=== PATIENT | male | born 1955 | race Caucasian/White ===

== ENCOUNTER 2021-08-10 15:24 | Observation (INO) | payer OTHER ==
--- OUTSIDE RECORDS SUMMARY | 2021-08-10 15:28 | XMS REPORT | Continuity of Care Document ---
:1955 Author Organization [facility] t Address [address] [place] [address] Care Team Providers Name Role Phone Braydon JARRETT, [facility] Primary Care Physician PREZAS Attending Clinician Unavailable LAB90 Attending Clinician Unavailable Prezas DO Attending Clinician SREE Attending Clinician Unavailable Payers Payer Name Policy Type Policy Number Effective Date Expiration Date S antoni AEM[place]aq[place] 5 [id number] 2021 00:00:00 Problems Condition Condition Condition Status Onset Resolution Last Treating Co mments Source Name Details Category Date Date Treatment Clinician Date Hyperlipid Hyperlipid Disease Active K elsesebas emia emia 09-04 Seybold 00:00: 00 Essential Essential Disease Active Wan galeano hypertensi hypertensi 09-04 Se ybold on on 00:00: 00 Anxiety Anxiety Disease Active Lin 09-04 Seybold 00:00: 00 Allergies, Adverse Reactions, Alerts This patient has no known allergies or adverse reactions. Social History Social Habit Start Date Stop Date Quantity Comments Source Tobacco use and 2020-09-04 2020-09-04 Smokeless tobacco Kishore cartwrightey Seybold exposure 00:00:00 00:00:00 non-user Sex Ass[birth year] Lin Se ybold 00:00:00 00:00:00 Smoking Status Start Date Stop Date Source Never smoked tobacco Lin Monterroso old Medications Ordered Filled Start Stop Current Ordering Indication Dosage Frequency Signature Comments Components Source Medication Medication Date Date Medication? Clinician (SIG) Name Name Metformin Yes 1000mg Take 1,000 Lin HCl ER 500 4-05 mg by Seybold MG oral 11:07: mouth TABLET SR 50 daily 24 HR (with breakfast) Duloxetine Yes [id number] 60mg Take 1 K elsey HCl 60 MG 4-05 capsule Seybold oral Cap DR 00:00: (60 mg Particles 00 total) by mouth daily Tamsulosin Yes [id number] .4mg Take 1 Lin HCl 0.4 MG 7-06 capsule Seybol d oral 00:00: (0.4 mg Capsule 00 total) by mouth daily Nebivolol Yes [id number] 20mg Take 1 Ke lsey HCl 7-06 tablet (20 Seybold (Bystolic) 00:00: mg total) 20 MG oral 00 by mouth Tablet daily Empaglifloz Yes [id number] 1{tbl} Take 1 Lin in 7-06 tablet by Seybold (Jardiance) 00:00: mouth 25 MG oral 00 daily Tablet Amlodipine Yes [id number] 2.5mg Take 1 Lin Besylate 7-06 tablet Seybold 2.5 MG oral 00:00: (2.5 mg Tablet 00 total) by mouth daily hydroCHLORO Yes [id number] 12.5mg Take 1 Lin thiazide 7-06 tablet Seybold 12.5 MG 00:00: (12.5 mg oral Tablet 00 total) by mouth daily Duloxetine 2021- No [id number] 30mg Take 1 Lin HCl 30 MG 7-06 04-05 capsule Seybol d oral Cap DR 00:00: 00:00 (30 mg Particles 00 :00 total) by mouth daily Metformin 2021- No [id number] 500mg Take 1 Lin HCl ER 500 7-06 04-05 tablet Seybol d MG oral 00:00: 00:00 (500 mg TABLET SR 00 :00 total) by 24 HR mouth daily (with breakfast) Immunizations Ordered Immunization Filled Immunization Date Status Commen ts Source Name Name Tdap- (Boostrix, 2019-06-30 Completed Lin basilio Adacel) 00:00:00 Pneumococcal Vaccine, 2019-06-30 Completed Wan galeano Seybold Polysaccharide 00:00:00 Influenza Virus 2018-02-04 Completed Lin ybold Vaccine, age 6 months 00:00:00 and up Td- Tetanus & 2015-02-07 Completed Lin Hardencely old Diphtheria Vaccine 00:00:00 (age 7+ years) Pneumococcal Vaccine, 2015-02-07 Completed Wan froylan Hardenybold Polysaccharide 00:00:00 Shingles SQ (Zostavax) 2014-11-15 Completed Kishore mojgan Seybold 00:00:00 Vital Signs Vital Name Observation Time Observation Value Comments Source Systolic blood 2021-06-04 15:25:00 143 mm[Hg] Lin Hardenybold pressure Diastolic blood 2021-06-04 15:25:00 80 mm[Hg] Wan y Seybold pressure Heart rate 2021-06-04 15:25:00 74 /min Linfroylan fiorebodaniel Body temperature 2021-06-04 15:25:00 36.5 Carlotta Jaelyn fiore Seybnajma Respiratory rate 2021-06-04 15:25:00 14 /min Jaelyn fiore Seybnajma Body height 2021-06-04 15:25:00 177.8 cm Lin fiorebodaniel Body weight 2021-06-04 15:25:00 91.717 kg with shoes Lin santadaniel BMI 2021-06-04 15:25:00 29.01 kg/m2 Lin basilio Oxygen saturation in 2021-06-04 15:25:00 99 /min Linfroylan Pedraza Arterial blood by Pulse oximetry Procedures This patient has no known procedures. Encounters Start End Encounter Admission Attending Care Care Encounter Source Date/Time Date/Time Type Type Clinicians Facility Department ID 2021-07-09 2021-07-09 Outpatient LIN LANDEROS [id number] Lin 00:00:00 00:00:00 ANJU Seybol d 2021-07-09 2021-07-09 Outpatient LIN LANDEROS [id number] Lin 00:00:00 00:00:00 ANJU Seybol d 2021-06-10 2021-06-10 Outpatient LIN LANDEROS [id number] Lin 00:00:00 00:00:00 ANJU Seybol d 2021-06-10 2021-06-10 Outpatient KAUSHIKCARLOS ALIN Juarez [id number] Lin 00:00:00 00:00:00 ANJU Hardenybol jordy 2021-06-05 2021-06-05 Outpatient LAB90 LIN LIN [id number] Lin 08:15:00 08:15:00 Seybol d 2021-06-04 2021-06-04 Office Avery Landeros [id number] Lin 11:00:00 11:30:00 Visit Anju Merlin [id number] Se kelly [id number] 2020-05-09 2020-05-09 Outpatient SREE [facility] [id number] 00:00:00 00:00:00 APARNA Hoffman Ny brandie nieto 2020-04-18 2020-04-19 Outpatient [facility] [id number] 00:00:00 00:00:[address] Results This patient has no known results.
[2021-08-10] MEDS ORDERED: NA CHLORIDE 0.9% 1,000 ML ONE ×2 (16:00→21:45)
[2021-08-10 16:07] LABS: Absolute Lymphocytes (CBC) 1.3 K/uL (0.7-4.9); Hematocrit 50.4 % (39.6-49.0); Lymphocytes % 14.3 % (15.3-44.8); RBC Red Blood Cell Count 5.35 M/uL (4.33-5.43)
[2021-08-10 16:14] LABS: Protime INR 1.13
--- NOTE | 2021-08-10 16:26 | RAD REPORT ---
EXAM DESCRIPTION: RAD - Chest Single View - 08/10/2021 4:15 pm CLINICAL HISTORY: syncope COMPARISON: Two view chest August 2016 TECHNIQUE: AP portable chest image was obtained 08/10/2021 4:15 pm . FINDINGS: Lung volumes are low. Linear stranding in the right base is most likely atelectasis rather than infiltrate. No failure or volume overload. Heart and vasculature are normal. No measurable pleural effusion and no pneumothorax. No acute bony abnormality seen. No acute aortic findings suspected. IMPRESSION: Low lung volume chest examination with right base atelectasis. No other significant finding.
[2021-08-10 16:27] LABS: Albumin 2.8 g/dL (3.4-5.0); Bilirubin Direct 0.2 mg/dL (0-0.2); Bilirubin Total 0.5 mg/dL (0.2-1.0); Magnesium 1.5 mg/dL (1.8-2.4); Potassium 4.2 mmol/L (3.5-5.1); Protein, Total 6.4 g/dL (6.4-8.2); Troponin High Sensitivity 6.1 pg/mL (<58.9)
[2021-08-10] MEDS ORDERED: Magnesium Sulfate 2gm IVPB 2 G/50 ML BAG IV ONE (17:02)
--- NOTE | 2021-08-10 17:51 | RAD REPORT ---
EXAM DESCRIPTION: CT - Abdomen Pelvis Wo Contrast - 08/10/2021 4:55 pm CLINICAL HISTORY: Diarrhea COMPARISON: Chest Single View dated 08/10/2021 TECHNIQUE: Axial [address] imaging of the abdomen and pelvis was performed without IV contrast. No IV contrast was given because of allergy, abnormal renal function, patient refusal or physician re quest. No oral contrast administered. All CT scans are performed using dose optimization technique as appropriate and may include automated exposure control or mA/KV adjustment according to patient size. FINDINGS: No cardiomegaly or pericardial effusion. Right hemidiaphragm elevation is present. Scarrin g or linear atelectasis present the right lung base. The liver, spleen and pancreas show no suspicious findings on non-contrast imaging. Cholecystectomy c lips are present. No biliary tree dilatation. No hydronephrosis or suspicious renal mass. Bilateral nonobstructing calyx calculi are present 2-5 mm in size. No significant adrenal finding. Isodense renal masses and pyelonephritis cannot be excluded in the absence of IV contrast. The urinary bladder is without significant finding. Prostate gland is prominent. No seminal vesicle abnormality. Gastric lumen is empty accentuating wall thickness. No asymmetric wall thickening or edema changes se en. No acute small bowel finding. A few small sub centimeter mesenteric lymph nodes are present. Yris ent has mild sigmoid diverticulosis without diverticulitis. No appendicitis findings. No colon wall m ass seen. Areas of narrowing in the colon are believed to be peristalsis. Rectal assessment is limite d. No free air, free fluid or inflammatory stranding. No mass or bulky lymphadenopathy. Fat extends in to the origin of each inguinal canal. Disc and bone degenerative changes are present. L5 pars interarticularis defects are present with les s than grade 1 spondylolisthesis. IMPRESSION: Non-contrast enhanced CT abdomen and pelvis imaging show no acute or emergent finding. Full assessment is limited is the absence of IV contrast.
--- NOTE | 2021-08-10 18:40 | ER ---
Nurse's Notes [facility] Name: Huber Ross Age: 66 yrs Sex: Male : 1955 Arrival Date: 08/10/2021 Time: 15:27 Bed 20 Private MD: Oziel Landeros Diagnosis: Volume depletion, unspecified;Unspecified injury of unspecified kidney, initial encounter Presentation: 08/10 15:38 Chief complaint: Patient states: I passed out twice at home and fell on my face. I have jd3 been having diarrhea since Thursday. I had low blood pressure at home, it was in the 80's over 60's. Coronavirus screen: At this time, the client does not indicate any symptoms associated with coronavirus-19. Ebola Screen: No symptoms or risks identified at this time. Initial Sepsis Screen: Does the patient meet any 2 criteria? Systolic BP < 90 mmHg. Yes Does the patient have a suspected source of infection? No. Patient's initial sepsis screen is negative. Risk Assessment: Do you want to hurt yourself or someone else? Patient reports no desire to harm self or others. Onset of symptoms was August 10, 2021. Transition of care: patient was not received from another setting of care. 15:38 Method Of Arrival: Wheelchair jd3 15:38 Acuity: SHILPA 3 jd3 Historical: - Allergies: 15:40 No Known Allergies; jd3 - Home Meds: 15:40 metformin 500 mg Oral tab 2 tabs 2 times per day [Active]; Jardiance 25 mg oral tab 1 jd3 tab once daily [Active]; hydrochlorothiazide 12.5 mg Oral tab [Active]; nebivolol 20 mg oral tab 1 tab once daily [Active]; duloxetine 60 mg oral CDRS 1 cap once daily [Active]; amlodipine 2.5 mg tab 1 tab once daily [Active]; tamsalosin [Active]; omeprazole 20 mg Oral cpDR 1 cap once daily [Active]; - PMHx: 15:40 DM; HTN; Kidney stones; jd3 - PSHx: 15:40 Cholecystectomy; jd3 - Immunization history:: Adult Immunizations up to date. - Social history:: Smoking status: Patient denies any tobacco usage or history of. Screenin:50 Abuse screen: Denies threats or abuse. Denies injuries from another. Nutritional aguilar screening: No deficits noted. Tuberculosis screening: No symptoms or risk factors identified. Fall Risk None identified. Assessment: 15:50 General: Appears in no apparent distress. Behavior is calm, cooperative. Pain: Denies aguilar pain. Cardiovascular: Reports fatigue, lightheadedness, syncope. GI: Reports diarrhea. Vital Signs: 15:38 BP 88 / 65; Pulse 73; Resp 16; Temp 97.8(O); Pulse Ox 97% on R/A; Weight 88 kg (R); jd3 Height 5 ft. 10 in. (177.80 cm) (R); Pain 0/10; 17:52 BP 110 / 72; Pulse 71; Resp 17; Pulse Ox 96% on R/A; aguilar 15:38 Body Mass Index 27.84 (88.00 kg, 177.80 cm) jd3 ED Course: 15:27 Patient arrived in ED. as 15:27 Oziel Landeros DO is Private Physician. as 15:28 Sacha Keith PA is PHCP. cp 15:28 Dallas Knox MD is Attending Physician. cp 15:40 Triage completed. jd3 15:40 Arm band placed on right wrist. jd3 15:50 Tara Hernandez, RN is Primary Nurse. aguilar 15:50 Patient has correct armband on for positive identification. Bed in low position. aguilar 15:50 No provider procedures requiring assistance completed. aguilar 16:14 XRAY Chest (1 view) In Process Unspecified. EDMS 16:57 Abdomen In Process Unspecified. EDMS 18:37 Hunter Mazariegos MD is Hospitalizing Provider. cp 19:08 COVID-19 SARS RT PCR (Document "Date of Onset" if Symptomatic) Sent. aguilar 19:18 Primary Nurse role handed off by Tara Hernandez, ASHLEY 08/11 00:42 Patient admitted, IV remains in place. ag7 Administered Medications: 08/10 16:02 Drug: NS 0.9% 1000 ml Route: IV; Rate: 1 bolus; Site: right antecubital; aguilar 17:02 Drug: Magnesium Sulfate 1 grams Route: IVPB; Infused Over: 1 hrs; Site: right aguilar antecubital; Medication: 15:50 VIS not applicable for this client. aguilar Outcome: 18:40 Decision to Hospitalize by Provider. cp 08/11 00:42 Admitted to ag7 Condition: stable 12:48 Patient left the ED. iw Signatures: Dispatcher [employer] Veda Dai Irene, RN RN Sacha Reese PA PA cp Davies, Jonathon, RN RN jd3 Petra Cerda Heather, RN RN Tiara Pennington RN RN ag7
--- NOTE | 2021-08-10 18:41 | EDPHYS ---
Physician Documentation [facility] Name: Huber Ross Age: 66 yrs Sex: Male : 1955 Arrival Date: 08/10/2021 Time: 15:27 Bed 20 Private MD: Oziel Landeros ED Physician Dallas Knox HPI: 08/10 15:47 This 66 yrs old Male presents to ER via Wheelchair with complaints of Near Syncope, cp High Blood Sugar, Blood Pressure Problem. 15:47 The patient has experienced syncope, lost consciousness. Onset: The symptoms/episode cp began/occurred today. Duration: The patient has had multiple episodes, that last 5 minute(s). Associated injury: The patient did not suffer any apparent associated injury. 15:47 Associated signs and symptoms: Pertinent positives: diarrhea, Pertinent negatives: cp abdominal pain, chest pain, diaphoresis, headache, palpitations. Historical: - Allergies: 15:40 No Known Allergies; jd3 - Home Meds: 15:40 metformin 500 mg Oral tab 2 tabs 2 times per day [Active]; Jardiance 25 mg oral tab 1 jd3 tab once daily [Active]; hydrochlorothiazide 12.5 mg Oral tab [Active]; nebivolol 20 mg oral tab 1 tab once daily [Active]; duloxetine 60 mg oral CDRS 1 cap once daily [Active]; amlodipine 2.5 mg tab 1 tab once daily [Active]; tamsalosin [Active]; omeprazole 20 mg Oral cpDR 1 cap once daily [Active]; - PMHx: 15:40 DM; HTN; Kidney stones; jd3 - PSHx: 15:40 Cholecystectomy; jd3 - Immunization history:: Adult Immunizations up to date. - Social history:: Smoking status: Patient denies any tobacco usage or history of. ROS: 15:50 Constitutional: Positive for poor PO intake, Negative for body aches, chills, fever. cp 15:50 Eyes: Negative for injury, pain, redness, and discharge. cp 15:50 Abdomen/GI: Positive for diarrhea, Negative for abdominal pain, vomiting, constipation, black/tarry stool, rectal bleeding. 15:50 Cardiovascular: Negative for chest pain, edema, palpitations. cp 15:50 Respiratory: Negative for cough, shortness of breath, wheezing. 15:50 ENT: Negative for drainage from ear(s), ear pain, sore throat, difficulty swallowing, cp difficulty handling secretions. 15:50 Neuro: Positive for syncope, Negative for altered mental status, headache. 15:50 All other systems are negative. Exam: 15:42 ECG was reviewed by the Attending Physician. cp 15:55 Constitutional: The patient appears in no acute distress, alert, awake, comfortable, cp non-diaphoretic, non-toxic, well developed, well nourished. 15:55 Head/Face: Normocephalic, atraumatic. cp 15:55 Eyes: Periorbital structures: appear normal, Pupils: equal, round, and reactive to light and accomodation, Extraocular movements: intact throughout, Conjunctiva: normal, no exudate, no injection, Sclera: no appreciated abnormality, Lids and lashes: appear normal, bilaterally. 15:55 ENT: External ear(s): are unremarkable, Nose: is normal, Mouth: Lips: moist, Oral mucosa: pink and intact, moist, Posterior pharynx: Airway: no evidence of obstruction, patent. 15:55 Neck: ROM/movement: is normal, is supple, without pain, no range of motions limitations. 15:55 Chest/axilla: Inspection: normal, Palpation: is normal, no crepitus, no tenderness. 15:55 Cardiovascular: Rate: normal, Rhythm: regular, Edema: is not appreciated, JVD: is not appreciated. 15:55 Respiratory: the patient does not display signs of respiratory distress, Respirations: normal, no use of accessory muscles, no retractions, labored breathing, is not present, Breath sounds: are clear throughout, no decreased breath sounds, no stridor, no wheezing. 15:55 Abdomen/GI: Inspection: abdomen appears normal, Bowel sounds: active, all quadrants, Palpation: abdomen is soft and non-tender, in all quadrants. 15:55 Back: pain, is absent, ROM is normal. 15:55 Skin: cellulitis, is not appreciated, no rash present. 15:55 Neuro: Orientation: to person, place \\T\\ time. Mentation: is normal, Cerebellar function: is grossly normal, Motor: moves all fours, strength is normal, Sensation: is normal. 18:00 : Rectal exam: Guaiac testing: results were negative for occult blood. cp Vital Signs: 15:38 BP 88 / 65; Pulse 73; Resp 16; Temp 97.8(O); Pulse Ox 97% on R/A; Weight 88 kg (R); jd3 Height 5 ft. 10 in. (177.80 cm) (R); Pain 0/10; 17:52 BP 110 / 72; Pulse 71; Resp 17; Pulse Ox 96% on R/A; aguilar 15:38 Body Mass Index 27.84 (88.00 kg, 177.80 cm) jd3 MDM: 15:36 Patient medically screened. cp 16:00 Differential Diagnosis: cardiac arrhythmia, GI bleed, sepsis, vasovagal episode. cp 18:15 Data reviewed: vital signs, nurses notes, lab test result(s), EKG, radiologic studies, cp CT scan, plain films. 18:15 Test interpretation: by ED physician or midlevel provider: ECG, plain radiologic cp studies. 18:35 Physician consultation: Zen Etienne was contacted at 18:35, regarding admission, to the telemetry unit. patient's condition, and will see patient in ED, shortly. 08/10 15:47 Order name: Basic Metabolic Panel; Complete Time: 16:29 cp 08/10 16:29 Interpretation: Normal except: NA 133; CO2 19; GLUC 209; BUN 31; CRE 1.84; GFR 40; CA cp 7.9. 08/10 15:47 Order name: CBC with Diff; Complete Time: 16:13 08/10 16:30 Interpretation: Normal except: HCT 50.4; MPV 7.0; LYM% 14.3. cp 08/10 15:47 Order name: LFT's; Complete Time: 16:29 cp 08/10 15:47 Order name: Magnesium; Complete Time: 16:29 cp 08/10 15:47 Order name: NT PRO-BNP; Complete Time: 16:29 cp 08/10 15:47 Order name: PT-INR; Complete Time: 16:29 cp 08/10 15:47 Order name: Troponin HS; Complete Time: 16:29 cp 08/10 15:47 Order name: Ova And Parasites cp 08/10 15:47 Order name: Rotavirus Antigen cp 08/10 15:47 Order name: Stool Culture cp 08/10 15:47 Order name: CDIFF cp 06/11 17:03 Order name: COVID-19 SARS RT PCR (Document "Date of Onset" if Symptomatic) 08/11 00:25 Order name: Glucose, Ancillary Testing EDNM 08/11 03:46 Order name: CBC with Automated Diff EDNM 08/10 15:47 Order name: XRAY Chest (1 view); Complete Time: 16:29 08/10 15:47 Order name: EKG; Complete Time: 15:48 08/10 15:47 Order name: Cardiac monitoring; Complete Time: 16:02 08/10 15:47 Order name: EKG - Nurse/Tech; Complete Time: 16:02 08/10 15:47 Order name: IV Saline Lock; Complete Time: 16:02 08/10 15:47 Order name: Labs collected and sent; Complete Time: 16:02 08/10 15:47 Order name: O2 Per Protocol; Complete Time: 16:02 08/10 16:30 Order name: CT Abd/Pelvis - Without Contrast 08/10 16:34 Order name: Abdomen ; Complete Time: 18:05 EDNM 08/10 18:06 Interpretation: Report reviewed. / 04:09 Order name: Comprehensive Metabolic Panel EDNM 08/11 04:09 Order name: Magnesium EDNM 08/11 04:09 Order name: Thyroid Stimulating Hormone EDNM 08/11 09:39 Order name: Glucose, Ancillary Testing EDNM 08/11 12:11 Order name: Glucose, Ancillary Testing EDNM 08/10 15:47 Order name: O2 Sat Monitoring; Complete Time: 16:02 EC:42 Rate is 72 beats/min. Rhythm is regular. MD interval is prolonged at 204 msec. QRS cp interval is normal. QT interval is normal. T waves are Inverted in lead aVR. Interpreted by me. Reviewed by me. Administered Medications: 16:02 Drug: NS 0.9% 1000 ml Route: IV; Rate: 1 bolus; Site: right antecubital; 17:02 Drug: Magnesium Sulfate 1 grams Route: IVPB; Infused Over: 1 hrs; Site: right aguilar antecubital; Disposition: 08/11 13:24 Co-signature as Attending Physician, Dallas Knox MD I agree with the assessment and kdr plan of care. Disposition Summary: 08/10/21 18:40 Hospitalization Ordered Hospitalization Status: Observation cp Provider: Hunter Mazariegos cp Condition: Stable cp Problem: new cp Symptoms: have improved cp Bed/Room Type: Standard cp Location: Telemetry/MedSurg (observation)(08/11/21 09:12) eb Room Assignment: 219(08/11/21 09:12) eb Diagnosis - Volume depletion, unspecified cp - Unspecified injury of unspecified kidney, initial encounter cp Forms: - Medication Reconciliation Form cp - SBAR form cp Signatures: Dispatcher [employer] EDMS Dallas Knox MD MD kdr Attema, Lee, FLAME CUTTING SUPERVISOR-C FLAME CUTTING SUPERVISOR-Cla1 Sacha Keith PA PA cp Yakelin Magdaleno, RN RN cg Demetrio Esquivel RN RN Petra Cintron Heather RN RN aguilar Corrections: (The following items were deleted from the chart) 08/10 22:17 18:40 Telemetry/MedSurg (observation) cp cg 22:17 18:40 cp cg 08/11 09:12 08/10 22:17 [facility] ER HOLD cg eb 08/11 09:12 08/10 22:17 ERHOLD- cg eb
--- NOTE | 2021-08-10 19:06 | P.HP ---
Certification for Inpatient Patient admitted to: Observation With expected LOS: <2 Midnights Patient will require the following post-hospital care: None Practitioner: I am a practitioner with admitting privileges, knowledge of patient current condition, hospital course, and medical plan of care. Services: Services provided to patient in accordance with Admission requirements found in Title 42 Section 412.3 of the Code of Federal Regulations Patient History Date of Service: 08/10/21 Reason for admission: Syncope, hypotension History of Present Illness: 66-year-old male history of diabetes mellitus type [id number], hypertension presents the emergency department for syncope, hypotension, diarrhea. Patient reports he has been having diarrhea since Thursday he recently started Victoza just got up to the full dose recently. He reports he had a syncopal episode after getting up out of bed to use the restroom his blood pressures been running low in the 80s over 50s at home. He was evaluated in the emergency department and labs were significant for acute kidney injury, low bicarb, hypomagnesemia. ED prior wishes to admit under observation for dehydration, syncope, diarrhea. Allergies No Known Allergies Allergy (Unverified 06/01/12 09:23) - Past Medical/Surgical History -: Diabetes mellitus type [id number] -: Hypertension -: Cholecystectomy Psychosocial/ Personal History: Patient lives at home with his - Family History Father -: Diabetes Mother -: Cancer - Social History Smoking Status: Never smoker Alcohol use: No CD- Drugs: No Caffeine use: Yes Place of Residence: Home Review of Systems 10-point ROS is otherwise unremarkable General: Weakness Gastrointestinal: Diarrhea Physical Examination - Physical Exam General: Alert, In no apparent distress, Oriented x3 HEENT: Atraumatic, PERRLA, Other (Mucous membranes dry), EOMI, Sclerae nonicteric Neck: Supple, 2+ carotid pulse no bruit, No LAD, Without JVD or thyroid abnormality Respiratory: Clear to auscultation bilaterally, Normal air movement Cardiovascular: Regular rate/rhythm, Normal S1 S2 Gastrointestinal: Normal bowel sounds, No tenderness Musculoskeletal: No tenderness Integumentary: No rashes Neurological: Normal gait, Normal speech, Normal strength at 5/5 x4 extr, Normal tone, Normal affect Lymphatics: No axilla or inguinal lymphadenopathy - Studies Laboratory Data (last 24 hrs) 08/10/21 16:00: PT 12.5, INR 1.13 08/10/21 16:00: WBC 9.2, Hgb 17.0, Hct 50.4 H, Plt Count 275 08/10/21 16:00: Sodium 133 L, Potassium 4.2, BUN 31 H, Creatinine 1.84 H, Glucose 209 H, Magnesium 1.5 L, Total Bilirubin 0.5, AST 4 L, ALT 19, Alkaline Phosphatase 74 Assessment and Plan - Plan Assessment: Syncope, hypotension likely secondary to diarrhea/dehydration Acute kidney injury Diabetes mellitus type [id number] Hypertension currently with hypotension Plan: Syncope, hypotension likely secondary to diarrhea/dehydration: Blood pressure has improved currently around 110 systolic continue with IV fluids overnight likely related to dehydration, diarrhea. Suspect diarrhea is related to recent increase in dose of Victoza, no signs of infection white blood cell count normal no fever chills noted. Stool studies have been sent. Repeat orthostatic vital signs morning. Acute kidney injury: Continue IV fluids overnight recheck chemistry in the morning anticipate improvement, if not we will obtain renal ultrasound, consult nephrology. Diabetes mellitus type [id number]: ACH S Accu-Chek, sliding scale insulin. Hold Victoza/metformin. Hypertension currently with hypotension: Hold antihypertensive agents continue IV fluids. DVT PPX: Lovenox Code status: Full Discharge Plan: Home Plan to discharge in: 24 Hours - Advance Directives Does patient have a Living Will: No Does patient have a Durable POA for Healthcare: No - Code Status/Comfort Care Code Status Assessed: Yes (Full code) Critical Care: No Time Spent Managing Pts Care (In Minutes): 70
[2021-08-11] MEDS ORDERED: ONDANSETRON 4 MG/2 ML VIAL IV PRN (00:06)
[2021-08-11] MEDS: NA CHLORIDE 0.9% 1,000 ML IV SCH ×2 (00:06→08:06)
[2021-08-11] MEDS: INSULIN -REGULAR HUMAN 50 UNIT/0.5 ML ML SQ SCH ×2 (00:06→07:30)
[2021-08-11 00:37] VITALS: BMI 27.8
[2021-08-11 03:39] LABS: Absolute Lymphocytes (CBC) 2.1 K/uL (0.7-4.9); Hematocrit 48.4 % (39.6-49.0); Lymphocytes % 24.4 % (15.3-44.8); MPV 7.2 fL (7.6-11.3); RBC Red Blood Cell Count 5.17 M/uL (4.33-5.43)
[2021-08-11 04:07] LABS: Albumin 2.7 g/dL (3.4-5.0); Bilirubin Total 0.4 mg/dL (0.2-1.0); Magnesium 2.2 mg/dL (1.8-2.4); Protein, Total 6.2 g/dL (6.4-8.2); Thyroid Stimulating Hormone 2.81 uIU/mL (0.360-3.740)
[2021-08-11] MEDS ORDERED: NA CHLORIDE 0.9% 1,000 ML ONE (07:22)
[2021-08-11] MEDS ORDERED: ENOXAPARIN 40 MG/0.4 ML SQ SCH (09:00)
[2021-08-11] MEDS ORDERED: ENOXAPARIN 40 MG/0.4 ML SQ ONE (09:41)
--- NOTE | 2021-08-11 10:59 | P.DS ---
Admission Date: 08/10/21 Discharge Date: 08/11/21 Disposition: ROUTINE DISCHARGE Discharge Condition: GOOD Reason for Admission: Syncope, hypotension Brief History of Present Illness: 66-year-old male history of diabetes mellitus type [id number], hypertension presents the emergency department for syncope, hypotension, diarrhea. Patient reports he has been having diarrhea since Thursday he recently started Victoza just got up to the full dose recently. He reports he had a syncopal episode after getting up out of bed to use the restroom his blood pressures been running low in the 80s over 50s at home. He was evaluated in the emergency department and labs were significant for acute kidney injury, low bicarb, hypomagnesemia. ED prior wishes to admit under observation for dehydration, syncope, diarrhea. Hospital Course: Since admission, his blood pressure remained stable with IV fluid bolus and continuous isotonic fluid administration with normal saline in the future. If acute culture was poor with a creatinine of 1.87 but this improved after hydration to 1.23 this morning. He feels stable with increased blood pressure and MAP is significantly more than 65 mmHg. He is able to eat well and has no dizziness on standing which depicts resolution of orthostatic hypotension. Is deemed stable for discharge today to follow-up with his primary care doctor for adjustment of his antidiabetic medication. He has been told to hold Victoza dose as this is deemed the primary reason for his symptoms. Vital Signs/Physical Exam: Temp Pulse Resp BP Pulse Ox 98.5 F 71 18 103/75 95 08/11/21 00:00 08/11/21 03:19 08/11/21 03:19 08/11/21 03:19 08/11/21 03:19 General: Alert, Oriented x3 HEENT: Atraumatic, Normocephalic Neck: Supple Respiratory: Normal air movement Cardiovascular: Regular rate/rhythm, Normal S1 S2 Gastrointestinal: Soft and benign Musculoskeletal: No swelling Laboratory Data at Discharge: WBC 8.6 K/uL (4.3-10.9) 08/11/21 03:30 Hgb 16.4 g/dL (13.6-17.9) 08/11/21 03:30 Hct 48.4 % (39.6-49.0) 08/11/21 03:30 Plt Count 237 K/uL (152-406) 08/11/21 03:30 PT 12.5 SECONDS (9.5-12.5) 08/10/21 16:00 INR 1.13 08/10/21 16:00 Sodium 136 mmol/L (136-145) 08/11/21 03:30 Potassium 4.0 mmol/L (3.5-5.1) 08/11/21 03:30 BUN 26 mg/dL (7-18) H 08/11/21 03:30 Creatinine 1.27 mg/dL (0.55-1.3) 08/11/21 03:30 Glucose 147 mg/dL (74-106) H 08/11/21 03:30 Magnesium 2.2 mg/dL (1.8-2.4) D 08/11/21 03:30 Total Bilirubin 0.4 mg/dL (0.2-1.0) 08/11/21 03:30 AST 7 U/L (15-37) L 08/11/21 03:30 ALT 17 U/L (12-78) 08/11/21 03:30 Alkaline Phosphatase 71 U/L (45-117) 08/11/21 03:30 Diet: ADA Followup: Oziel Landeros DO [Primary Care Provider] -
[2021-08-11 12:18] VITALS: BP 116/69; TEMP 97.7
[2021-08-11 12:54] VITALS: O2SAT 96
--- NOTE | 2021-08-12 13:38 | EKG ---
Test Date: 2021-08-10 Test Time: 15:36:53 [employer] Manager: QUEENIE MEASUREMENT RESULTS: Intervals: Rate: 72 W[place]: 204 QRSD: 90 QT: 392 QTc: 429 [place]: P: 37 W[place]: 204 QRS: 0 T: 63 INTERPRETIVE STATEMENTS: Normal sinus rhythm Normal ECG Compared to ECG 12/05/1993 10:51:00 No significant changes Electronically Signed On 08-12-21 13:35:17 CDT by Rick Mcdonald
== END 2021-08-11 12:43 | disposition home or self-care (01) ==
LOC: ER 15:24 → ERHOLD 18:57
PROVIDERS: ADMIT Internal Medicine Nephrology; ATTEND Internal Medicine Nephrology
DX: I95.1 Orthostatic hypotension (principal); N17.9 Acute kidney failure, unspecified; E86.0 Dehydration; R19.7 Diarrhea, unspecified; E11.9 Type 2 diabetes mellitus without complications; E83.42 Hypomagnesemia; I10 Essential (primary) hypertension; Z20.822 Contact with and (suspected) exposure to COVID-19; Z90.49 Acquired absence of other specified parts of digestive tract; Z83.3 Family history of diabetes mellitus; Z80.9 Family history of malignant neoplasm, unspecified
CPT/HCPCS: 93005; 85025 ×2; 80048; 36415; 83735 ×2; 85610; 82947 ×3; 80076; 84443; 84484; 80053; 83880; 74176; 71045; 96374; 99285; U0003; J1650; J3475; J7030 ×3; G0378 ×3